=== PATIENT | female | born 1975 | race American Indian/Alaskan Native ===

== ENCOUNTER 2023-09-17 15:02 | Outpatient (AMB) | payer OTHER, SELFPAY ==
--- NOTE | 2023-09-17 15:18 | A.SPINEOV_ITS ---
Intake Intake Visit Reasons: Low back pain. Intake Note: Mrs. Garsia is here today c/o low back pain. 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 The patient is here today in follow-up. She has been seen by Oncology at [facility] as well as the Oncology team at [facility]. There was no follow-up radiation or chemotherapy to do for this, she tells me that at this point they did not have any treatment options for her. She has been having some symptoms, in terms of left thigh numbness and when she is walking on the track she will get a feeling of fatigue and some slight weakness. On exam his strength seems good. Because of the nature of her tumor being slow growing, Dr. Wakefield has recommended yearly follow-ups with a noncontrast CT. I will arrange that at [facility] and we can follow-up over the phone or in the office to review. Total amount of time spent in this visit was 20 minutes in discussion of symptoms, previous CT of lumbar imaging results and subsequent plan of care Porfirio Wakefield MD,PhD [facility] Coding Level of Care Code Est Pt Level 3 (71727) Diagnoses Mass of spine M89.8X8
== END 2023-09-17 15:58 | disposition home or self-care (01) ==
PROVIDERS: PCP Internal Medicine; Visit Provider Physician Assistant
DX: M89.8X8 Other specified disorders of bone, other site (principal)
CPT/HCPCS: 99213

== ENCOUNTER → 2023-09-17 15:02 | Outpatient (BNVA) | payer OTHER, SELFPAY | PROVIDERS: PCP Internal Medicine; Visit Provider Physician Assistant ==

== ENCOUNTER 2023-10-21 16:28 | Outpatient (REF) | payer OTHER, SELFPAY ==
--- NOTE | ~2023-10-21 | CT_ITS ---
EXAMINATION: CT LUMBAR SPINE WITHOUT CONTRAST CLINICAL INFORMATION: History of paraspinal mass. History of neuroblastoma. COMPARISON: Lumbar spine MRI from 08/01/2020. TECHNIQUE: Multidetector helical imaging of the lumbar spine was obtained without intravenous contrast. Multiple axial reformats and coronal/sagittal reconstructions were created the technologist workstation for review. This CT examination was performed using dose optimization techniques as appropriate, variously including the following: *Automated exposure control. *Adjustment of mA and/or kV according to patient size (this includes techniques or standardized protocols for targeted exams where dose is matched to indication/reason for exam; i.e. extremities or head). *Use of iterative reconstruction technique. DLP: 407 mGy-cm FINDINGS: Chronic kyphotic curvature of the thoracolumbar junction centered on L1-L2. Chronic accentuated lordosis of the lower lumbar spine. There is moderate degenerative stepwise retrolistheses of L2-S1. No evidence of acute fracture or traumatic subluxation. The vertebral body heights are maintained. Moderate degenerative disc disease from T12-L4. Mild degenerative disc disease from L4-S1. No suspicious lytic or sclerotic osseous lesions. Redemonstrated heterogeneous calcified mass in the left paraspinal soft tissues at the level of L3 distorting the medial aspect of the left psoas muscle, measuring 4.1 x 3.2 x 4.2 cm (previously approximately 4.5 x 3.5 x 5 cm by MRI). No additional significant abnormalities of the paraspinal musculature. 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 Chronic compensatory hypertrophy of the left-sided kidney. Multiple surgical clips are noted throughout the retroperitoneum and in the gallbladder fossa. Chronic partially visualized cyst in the right hepatic lobe. Otherwise, limited evaluation of the intra-abdominal structures without definitive additional abnormalities. The abdominal aorta is of normal contour and caliber. AXIAL SPINAL LEVELS: L1-L2: Mild diffuse disc bulge. There is moderate bilateral facet joint arthropathy. There is mild right and no left neural foraminal stenosis. There is no demonstrated spinal canal stenosis. L2-L3: Mild diffuse disc bulge. There is moderate bilateral facet joint arthropathy. There is moderate right and mild left neural foraminal stenosis. There is no demonstrated spinal canal stenosis. L3-L4: Moderate diffuse disc bulge. There is moderate to severe bilateral facet joint arthropathy. There is moderate to severe bilateral neural foraminal stenosis. There is no demonstrated spinal canal stenosis. L4-L5: Mild diffuse disc bulge. There is moderate bilateral facet joint arthropathy. There is moderate to severe left and moderate right neural foraminal stenosis. There is no demonstrated spinal canal stenosis. L5-S1: Mild diffuse disc bulge. There is moderate bilateral facet joint arthropathy. There is moderate left and mild right neural foraminal stenosis. There is no demonstrated spinal canal stenosis. CT/CT lumbar spine wo IV con IMPRESSION: 1. Redemonstrated heterogeneous calcified mass in the left paraspinal soft tissues at the level of L3 distorting the medial aspect of the left psoas muscle. This lesion may measure slightly smaller than on exam from 2020 (although comparison across modalities may lead to this discrepancy). 2. No evidence of acute fracture or traumatic subluxation of the lumbar spine. 3. Moderate multilevel degenerative spondyloarthropathy of the lumbar spine as described in detail above. Most notably on this limited exam without intrathecal contrast, there are moderate to severe neural foraminal stenoses from L2-S1. No demonstrated spinal canal stenosis.
== END 2023-10-21 16:29 | disposition home or self-care (01) ==
LOC: HO.CT 16:28
PROVIDERS: PCP Internal Medicine; Visit Provider Physician Assistant
DX: M89.8X8 Other specified disorders of bone, other site (principal)
CPT/HCPCS: 72132

== ENCOUNTER 2023-10-31 14:57 | Outpatient (AMB) | payer OTHER, SELFPAY ==
--- NOTE | 2023-10-31 15:16 | A.OFFVIS_ITS ---
Intake Intake Visit Reasons: CT follow up Assessment & Plan Assessment & Plan (1) Lumbar radiculopathy: Code(s): M54.16 - Radiculopathy, lumbar region (2) Mass of spine: Code(s): M89.8X8 - Other specified disorders of bone, other site Plan Mrs Garsia is here today to follow-up on her CT scan. Please see my previous note for the specifics of the problem. Dr. Wakefield and I reviewed the CT scan done here at [place] and it shows what appears to be stable left psoas mass. We do not see a significant increase in the size from last year. It looks about the same, and looks smaller than it did before surgery. We would like to repeat the imaging in 1 year with a noncontrast lumbar CT. However, we would like to do this at [facility] so we can have similar imaging comparisons done. Also, the patient tells me that she has been developing a lumbar radiculopathy will radiate down into her left leg distally and into her foot. 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 She does have a scoliosis and accentuated lordotic curve of her spot lumbar spine. In addition to the psoas mass, there is a degenerative listhesis at L3-4. I would like a lumbar MRI to evaluate to see if she does not have foraminal stenosis or lumbar stenosis that would explain the symptoms. Once the MRI is done I will call the patient with the results. Total amount of time spent in this visit was 20 minutes in discussion of symptoms, lumbar CT imaging results and subsequent plan of care Porfirio Wakefield MD,PhD [facility] Orders: Orders MR lumbar spine wo/w con Today M54.16 - Radiculopathy, lumbar region, M89.8X8 - Other specified disorders of bone, other site Coding Level of Care Code Est Pt Level 3 (90607) Diagnoses Lumbar radiculopathy M54.16 Mass of spine M89.8X8
== END 2023-10-31 15:38 | disposition home or self-care (01) ==
PROVIDERS: PCP Internal Medicine; Visit Provider Physician Assistant
DX: M54.16 Radiculopathy, lumbar region (principal); M89.8X8 Other specified disorders of bone, other site
CPT/HCPCS: 99213

== ENCOUNTER → 2023-10-31 14:57 | Outpatient (BNVA) | payer OTHER, SELFPAY | PROVIDERS: PCP Internal Medicine; Visit Provider Physician Assistant ==

== ENCOUNTER 2023-11-28 15:21 | Outpatient (AMB) | payer OTHER, SELFPAY ==
--- NOTE | 2023-11-28 15:24 | HO.SPINEOV ---
Intake Intake Visit Reasons: MRI f/u Intake Note: Ms. Garsia is here today to F/u on MRI from [facility] in chart. Biochemistry Specialist Required: No Assessment & Plan Assessment & Plan (1) Mass of spine: Code(s): M89.8X8 - Other specified disorders of bone, other site Plan Mrs Garsia is back in the office today for follow-up to review her most recent MRI in the setting of known left side L3 grade 1 chondrosarcoma. She had subtotal resection done in 2021. We had the MRI done at [facility] so we could compare similar imaging and this shows that the mass has not grown over the last year so. This is consistent with her pathology, that we do not expect significant growth over time. Comparing to preoperative MRIs, there has been subtotal resection, in other words it is smaller than it was before surgery obviously but there is still enough mass left to be causing some stretch on the psoas muscle. At this time, based on Dr. Wakefield previous review of her imaging and pathology, as well as the notes from the [facility], suggest yearly surveillance imaging as the appropriate management at this time. I will arrange a follow-up in 1 year. We will do this again at [facility] just so we can compare similar imaging. She will call us if there are any issues between now and then. Total amount of time spent in this visit was 20 minutes in discussion of symptoms, lumbar imaging results and subsequent plan of care Porfirio Wakefield MD,PhD [facility] Orders: Orders MR lumbar spine wo/w con 1 Year M89.8X8 - Other specified disorders of bone, other site Coding Level of Care Code Est Pt Level 3 ([id number]) Diagnoses Mass of spine M89.8X8
== END 2023-11-28 15:57 | disposition home or self-care (01) ==
PROVIDERS: PCP Internal Medicine; Visit Provider Physician Assistant
DX: M89.8X8 Other specified disorders of bone, other site (principal)
CPT/HCPCS: 99213

== ENCOUNTER → 2023-11-28 15:21 | Outpatient (BNVA) | payer OTHER, SELFPAY | PROVIDERS: PCP Internal Medicine; Visit Provider Physician Assistant ==

== ENCOUNTER 2024-10-23 14:25 | Outpatient (AMB) | payer OTHER, SELFPAY ==
--- NOTE | 2024-10-23 14:27 | HO.SPINEOV ---
Intake Visit Reasons: F/u on MRI Intake Note: Ms. Garsia is here today to F/u on the results to her MRI. Bellman Captain Required: No Assessment & Plan Assessment & Plan (1) Mass of spine: Code(s): M89.8X8 - Other specified disorders of bone, other site Category: Medical Plan Mrs Garsia is here in follow up to review her most recent MRI done at [facility]. 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 She gets serial yearly MRI for surveillance. She is followed at the [facility] [place]. Her most recent MRI shows stable mass with no significant change in size. Overall symptomatically she is not having weakness, numbness that is interfering with her quality of life. She can walk up and down stairs okay and walks on the treadmill without problems. She is also very active at the gym and keeps in shape and seems to be maintaining her level function well. On my exam she has some mild left iliopsoas weakness but otherwise strength is normal. We will continue to get yearly MRIs. She is going to follow up with her doctor at [facility] just to check in to see if there is any follow-up treatments they feel would be helpful for her. We can send a copy of the MRI report and our notes if needed. Total amount of time spent in this visit was 20 minutes in discussion of symptoms, lumbar imaging results and subsequent plan of care Porfirio Wakefield MD,PhD [facility] Coding Level of Care Code Est Pt Level 3 (32327) Diagnoses Mass of spine M89.8X8
== END 2024-10-23 15:02 | disposition home or self-care (01) ==
PROVIDERS: PCP Internal Medicine; Visit Provider Physician Assistant
DX: M89.8X8 Other specified disorders of bone, other site (principal)
CPT/HCPCS: 99213